=== PATIENT | male | born 1990 | race Caucasian/White ===

== ENCOUNTER 2017-07-15 18:21 | Emergency (ER) | payer MEDICARE ==
[~2017-07-15] VITALS: Ht 185.4 cm; Wt 87.8 kg
[2017-07-15 18:22] VITALS: BP 154/78
[2017-07-15] MEDS ORDERED: LIDOCAINE-MPF 1%, 5ML INFIL ONE (18:30)
[2017-07-15] MEDS ORDERED: LIDOCAINE-MPF 1%, 5ML ONE (18:52)
[2017-07-15] MEDS ORDERED: BACITRACIN ZINC OINT 500U/GM, 0.9 GM ONE ×2 (20:16→20:25)
== END 2017-07-15 20:24 | disposition home or self-care (01) ==
LOC: ED 20:05
DX: S61.215A Laceration without foreign body of left ring finger without damage to nail, initial encounter (principal); W23.0XXA Caught, crushed, jammed, or pinched between moving objects, initial encounter; Y93.89 Activity, other specified; Y92.009 Unspecified place in unspecified non-institutional (private) residence as the place of occurrence of the external cause; Y99.8 Other external cause status
CPT/HCPCS: 12001; 99284